=== PATIENT | female | born 1955 | race Caucasian/White ===

== ENCOUNTER 2021-08-15 10:16 | Inpatient (IN) | payer OTHER ==
[~2021-08-15] VITALS: Ht 162.6 cm; Wt 81.6 kg
[2021-08-15] MEDS ORDERED: ELIQUIS5 MG PO (13:17)
[2021-08-15] MEDS ORDERED: COZAAR100 MG PO (13:17)
[2021-08-15] MEDS ORDERED: TENORMIN50 M1 PO (13:17)
[2021-08-15] MEDS ORDERED: HYDROCHLOROTHIA25 MG PO (13:17)
[2021-08-15] MEDS ORDERED: FLECAINIDE ACET50 MG PO (13:18)
[2021-08-15] MEDS ORDERED: FORTAMET500 MG PO (13:18)
[2021-08-15] MEDS ORDERED: [UNRECOGNIZED DRUG - OTHER] PO (13:19)
[2021-08-20] MEDS ORDERED: CLONIDINE HCL0.1 MG (08:06)
== END 2021-08-22 09:27 | disposition home or self-care (01) | DRG 742 ==
LOC: O/R 08-20 05:55 → OB/GYN 08-20 05:55 → SURH 08-20 07:00 → OB/GYN 08-20 16:00
PROVIDERS: ADMIT Obstetrics & Gynecology; ATTEND Obstetrics & Gynecology
PROC: 0UT20ZZ Resection of Bilateral Ovaries, Open Approach (ICD-10-PCS; 2021-08-20)
PROC: 0UT70ZZ Resection of Bilateral Fallopian Tubes, Open Approach (ICD-10-PCS; 2021-08-20)
PROC: 0DN80ZZ Release Small Intestine, Open Approach (ICD-10-PCS; 2021-08-20)
PROC: 0UT90ZZ Resection of Uterus, Open Approach (ICD-10-PCS; principal; 2021-08-20 07:00)
DX: N81.2 Incomplete uterovaginal prolapse (principal); I48.20 Chronic atrial fibrillation, unspecified; N80.0 Endometriosis of uterus; N72 Inflammatory disease of cervix uteri; N73.6 Female pelvic peritoneal adhesions (postinfective); D25.2 Subserosal leiomyoma of uterus; N94.89 Other specified conditions associated with female genital organs and menstrual cycle; N83.292 Other ovarian cyst, left side; N83.291 Other ovarian cyst, right side; N84.0 Polyp of corpus uteri; I11.9 Hypertensive heart disease without heart failure; E11.9 Type 2 diabetes mellitus without complications; E78.00 Pure hypercholesterolemia, unspecified; Z79.01 Long term (current) use of anticoagulants

== ENCOUNTER 2025-06-22 11:35 | Inpatient (IN) | payer OTHER ==
[~2025-06-22] VITALS: Ht 165.1 cm; Wt 98.9 kg
[~2025-06-22 11:35] MED LIST: CLONIDINE HCL0.1 MG; COZAAR100 MG PO; ELIQUIS5 MG PO; FLECAINIDE ACET50 MG PO; FORTAMET500 MG PO; HYDROCHLOROTHIA25 MG PO; TENORMIN50 M1 PO; [UNRECOGNIZED DRUG - OTHER] PO
[2025-06-22] MEDS ORDERED: DIOVAN40 MG PO (11:55)
[2025-06-22] MEDS ORDERED: MULTAQ400 MG PO (11:56)
[2025-06-22] MEDS ORDERED: ZYLOPRIM100 M1 PO (11:56)
--- NOTE | 2025-06-22 11:56 | NUR ---
PTE ALERTA Y ORIENTADA X3 QUIEN REFIERE VENIR POR FIEBRE Y [facility]. AL MOMENTO PRESENTA 100.6. ESTA REFEIRE PADECER DE FIBRILACION
[2025-06-22] MEDS ORDERED: 0.9 % SODIUM CHLORIDE 1,000 ML IV SCH ×2 (13:00→19:00)
[2025-06-22] MEDS ORDERED: ACETAMINOPHEN 500 MG GEL..CAP PO ONE (13:37)
--- NOTE | 2025-06-22 13:37 | NUR ---
PACIENTE ALERTA Y ORIENTADA X 3. SE ORIENTA DE TRATAMIENTO KURT ORDEN MEDICA. REFIERE ENTENDER. SE CANALIZA, SE ELIZABETH MUESTRAS Y SE ADMINISTRAN MEDICAMENTOS CON MEDIDAS ASEPTICAS CORRESPONDIENTES.
[2025-06-22] MEDS ORDERED: ACETAMINOPHEN 500 MG GEL..CAP PO STA (13:38)
[2025-06-22 13:44] LABS: BASO % 0.4 % (0.1-1.2); EOS # 0.00 (0.04-0.54); EOS % 0.0 % (0.7-7.0); LYMPH # 0.85 (1.18-3.74); LYMPH % 10.9 % (19.3-53.1); MEAN PLATELET VOLUME 11.60 fl (9.4-12.4); MONO # 0.75 (0.24-0.82); MONO % 9.6 % (4.7-12.5); NEUT # 6.17 (1.56-6.13); NEUT % 78.8 % (34.0-71.1); RED CELL DISTRIBUTION WIDTH 14.0 % (11.6-14.4)
[2025-06-22 14:30] LABS: URINE APPEARANCE Clear; URINE BILIRRUBIN Negative (NEGATIVE); URINE BLOOD Moderate; URINE COLOR Yellow; URINE GLUCOSE Negative (NEGATIVE); URINE KETONE Negative (NEGATIVE); URINE LEUKOCYTE Negative; URINE NITRATE Negative; URINE PROTEIN Negative (NEGATIVE); URINE UROBILINOGEN 0.2 E.U./dl
[2025-06-22 14:31] LABS: URINE BACTERIA 4.7 uL (0.0-1933); URINE RBC 86.6 uL (0.0-20.8)
[2025-06-22 14:37] LABS: BUN CREA RATIO 13.0 (7.0-25.0); CREATININE SERUM 0.85 mg/dL (0.55-1.02); GFR 66.51; GLUCOSE FASTING 106.0 mg/dL (65-100); OSMOLALITY SERUM 277.0 MOSM/KG (275-295)
[2025-06-22 14:46] LABS: URINE CAST 0.00 uL (0.0-1.40); URINE EPITHELIAL CELLS 1.0 uL (0.0-38.8); URINE WBC 0.4 uL (0.0-23.2)
[2025-06-22] MEDS ORDERED: AMIODARONE HCL 500 ML IV SCH (17:15)
[2025-06-22] MEDS ORDERED: DILTIAZEM HCL 25 MG/5 ML VIAL IV ONE ×2 (17:30→18:10)
[2025-06-22] MEDS ORDERED: FAMOTIDINE/PF 20 MG in 0.9 % SODIUM CHLORIDE 8 ML IV PUSH SCH (18:54)
[2025-06-22] MEDS ORDERED: IPRATROPIUM BROMIDE 0.5 MG/2.5 ML AMPUL.NEB IH SCH (18:57)
[2025-06-22] MEDS ORDERED: DEXTROSE 50 % IN WATER 0.5 G/ML VIAL IV PRN (19:00)
[2025-06-22] MEDS ORDERED: INSULIN LISPRO 1,000 UNIT/10 ML UNITS SUBCUTANEO PRN (19:00)
[2025-06-22] MEDS ORDERED: ACETAMINOPHEN 500 MG GEL..CAP PO PRN (19:00)
[2025-06-22] MEDS ORDERED: METHYLPREDNISOLONE SOD SUCC 125 MG VIAL IV ONE (19:00)
[2025-06-22] MEDS ORDERED: DILTIAZEM HCL 125 MG in 0.9 % SODIUM CHLORIDE 100 ML IV SCH (19:00)
[2025-06-22] MEDS ORDERED: DILTIAZEM HCL 125MG/25ML VIAL IV ONE (19:59)
[2025-06-22] MEDS ORDERED: GUAIFEN/DEXTROMETHORPHAN/PE 10 ML BLIST.PACK PO SCH (20:00)
[2025-06-22] MEDS ORDERED: APIXABAN 5 MG TABLET PO SCH (21:00)
[2025-06-22 21:25] LABS: INR 1.2
[2025-06-22 22:04] VITALS: BP 124/89; O2SAT 97
[2025-06-22 22:37] LABS: COVID-19 AG POSITIVE (NEGATIVE)
[2025-06-23] VITALS (9 sets, daily range): BP systolic 106–160; BP diastolic 57–85; O2SAT 97–100
[2025-06-23] MEDS ORDERED: PANTOPRAZOLE SODIUM 40 MG/VIAL VIAL IV SCH (09:00)
[2025-06-23] MEDS ORDERED: MULTAQ 400 MG PO SCH (11:03)
[2025-06-23] MEDS ORDERED: DIOVAN 80 MG PO SCH (11:05)
[2025-06-23] MEDS ORDERED: ATENOLOL 50 MG TABLET PO SCH (11:05)
[2025-06-23] MEDS ORDERED: HYDROCHLOROTHIAZIDE 12.5 MG CAPSULE PO SCH (11:06)
[2025-06-23] MEDS ORDERED: POTASSIUM CHLORIDE IN WATER 40 MEQ/100 ML PIGGYBAG IV NR (11:15)
[2025-06-23] MEDS ORDERED: SODIUM CHLORIDE 0.45 % 1,000 ML IV SCH (11:15)
[2025-06-24 00:44] VITALS: BP 120/73; O2SAT 96
[2025-06-24 02:36] VITALS: O2SAT 90
[2025-06-24 05:03] VITALS: O2SAT 94
[2025-06-24 07:19] LABS: BASO % 0.3 % (0.1-1.2); EOS # 0.05 (0.04-0.54); EOS % 0.5 % (0.7-7.0); LYMPH # 2.17 (1.18-3.74); LYMPH % 23.0 % (19.3-53.1); MEAN PLATELET VOLUME 12.50 fl (9.4-12.4); MONO # 1.05 (0.24-0.82); MONO % 11.1 % (4.7-12.5); NEUT # 6.12 (1.56-6.13); NEUT % 64.9 % (34.0-71.1); RED CELL DISTRIBUTION WIDTH 14.2 % (11.6-14.4)
[2025-06-24 07:20] LABS: BUN CREA RATIO 14.0 (7.0-25.0); CREATININE SERUM 0.63 mg/dL (0.55-1.02); GFR 93.97; GLUCOSE FASTING 100.0 mg/dL (65-100); OSMOLALITY SERUM 278.0 MOSM/KG (275-295)
[2025-06-24] MEDS ORDERED: ALLOPURINOL 100 MG TABLET PO SCH (09:00)
[2025-06-24 09:20] VITALS: O2SAT 91
[2025-06-24 11:09] VITALS: BP 138/87; O2SAT 96
[2025-06-24] MEDS ORDERED: ELIQUIS5 MG PO (11:24)
[2025-06-24] MEDS ORDERED: TENORMIN50 M1 PO (11:25)
[2025-06-24] MEDS ORDERED: MULTAQ400 MG PO (11:25)
[2025-06-24] MEDS ORDERED: DIOVAN40 MG PO (11:25)
[2025-06-24] MEDS ORDERED: HYDROCHLOROTHIA25 MG PO (11:26)
[2025-06-24] MEDS ORDERED: ALTIPRES LIQUI473 ML PO (11:26)
[2025-06-24] MEDS ORDERED: ZYLOPRIM100 M1 PO (11:26)
[2025-06-24] MEDS ORDERED: AMOX-CLAV 875-1 EACH PO (11:28)
[2025-06-24] MEDS ORDERED: MUPIROCIN1 G1 TOP (11:29)
== END 2025-06-24 12:38 | disposition home or self-care (01) | DRG 308 ==
LOC: ER 11:35 → MEDJ 19:18 → ICU-2 19:18 → MEDJ 06-23 11:39
PROVIDERS: Emergency Medicine; General Practice; ADMIT Internal Medicine; ATTEND Internal Medicine
PROC: 4A12X4Z Monitoring of Cardiac Electrical Activity, External Approach (ICD-10-PCS; principal; 2025-06-22)
PROC: B246ZZZ Ultrasonography of Right and Left Heart (ICD-10-PCS; 2025-06-22)
PROC: 8E0ZXY6 Isolation (ICD-10-PCS; 2025-06-22)
PROC: 3E0F7GC Introduction of Other Therapeutic Substance into Respiratory Tract, Via Natural or Artificial Opening (ICD-10-PCS; 2025-06-22)
PROC: BB24ZZZ Computerized Tomography (CT Scan) of Bilateral Lungs (ICD-10-PCS; 2025-06-23)
DX: I48.0 Paroxysmal atrial fibrillation (principal); U07.1 COVID-19; B34.9 Viral infection, unspecified; D69.6 Thrombocytopenia, unspecified; I11.9 Hypertensive heart disease without heart failure; E11.9 Type 2 diabetes mellitus without complications; Z79.01 Long term (current) use of anticoagulants; Z79.84 Long term (current) use of oral hypoglycemic drugs

== ENCOUNTER 2025-09-29 16:59 | Emergency (ER) | payer OTHER ==
[~2025-09-29] VITALS: Ht 157.5 cm; Wt 77.1 kg
[~2025-09-29 16:59] MED LIST changes: +ALTIPRES LIQUI473 ML PO; +AMOX-CLAV 875-1 EACH PO; +DIOVAN40 MG PO; +MULTAQ400 MG PO; +MUPIROCIN1 G1 TOP; +ZYLOPRIM100 M1 PO
[2025-09-29] MEDS ORDERED: OZEMPIC0.25 MG/02 SUBCUTANEO (20:06)
[2025-09-29] MEDS ORDERED: KETOROLAC TROMETHAMINE 30 MG VIAL IM ONE (21:15)
[2025-09-29] MEDS ORDERED: KETOROLAC TROMETHAMINE 30 MG VIAL ONE (21:35)
[2025-09-29] MEDS ORDERED: ACETAMINOPHEN 500 MG GEL..CAP PO ONE (22:15)
[2025-09-29] MEDS ORDERED: 8 HOUR650 MG PO (23:08)
== END 2025-09-30 02:04 | disposition home or self-care (01) ==
LOC: ER 16:59
DX: S89.81XA Other specified injuries of right lower leg, initial encounter (principal); W18.39XA Other fall on same level, initial encounter; Y93.89 Activity, other specified; Y92.018 Other place in single-family (private) house as the place of occurrence of the external cause; E11.9 Type 2 diabetes mellitus without complications; Z79.4 Long term (current) use of insulin; G47.33 Obstructive sleep apnea (adult) (pediatric); I10 Essential (primary) hypertension; I48.91 Unspecified atrial fibrillation